=== PATIENT | female | born 1940 | race Caucasian/White ===

== ENCOUNTER → 2017-03-22 | Outpatient (CLI) | payer OTHER ==
[~2017-03-22] MED LIST: MULTI-DAY VITA1 EACH PO; NEXIUM40 MG PO; TRAMADOL HCL50 MG PO; [UNRECOGNIZED DRUG - REMARK]
== END | disposition home or self-care (01) ==
LOC: NUC 03-08 09:00
DX: R10.12 Left upper quadrant pain (principal); K80.20 Calculus of gallbladder without cholecystitis without obstruction; K21.9 Gastro-esophageal reflux disease without esophagitis
CPT/HCPCS: 78227; A9537; J2805

== ENCOUNTER 2017-12-26 06:09 | Day surgery (SDC) | payer OTHER ==
[~2017-12-26] VITALS: Ht 160 cm; Wt 72.6 kg
[~2017-12-26 06:09] MED LIST changes: +CYMBALTA30 MG PO
[2017-12-26] MEDS ORDERED: CO Q-10100 MG PO (06:48)
[2017-12-26] MEDS ORDERED: CALCIUM 500 +1 EAC5 PO (06:48)
[2017-12-26 06:54] VITALS: BP 160/70
[2017-12-26] MEDS ORDERED: TRAMADOL HCL50 MG PO (10:00)
[2017-12-26 12:03] VITALS: BP 127/58
[2017-12-26 13:31] VITALS: BP 133/88
== END 2017-12-26 13:35 | disposition home or self-care (01) ==
LOC: SDC 06:09
PROC: 0FT44ZZ Resection of Gallbladder, Percutaneous Endoscopic Approach (ICD-10-PCS; principal; 2017-12-26)
DX: K80.10 Calculus of gallbladder with chronic cholecystitis without obstruction (principal); J45.909 Unspecified asthma, uncomplicated; F41.9 Anxiety disorder, unspecified
CPT/HCPCS: 88304; J1885; J2001; J2250; J2405; J2710; J2795; J3010; J3475; J7643; Q0175; S0074